=== PATIENT | female | born 1995 | race Asian ===

== ENCOUNTER 2025-03-14 08:30 | Outpatient (CLI) | payer BC, SELFPAY ==
[2025-03-14 14:56] LABS: Chlamydia DNA Amplified* NOT DETECTED (No Detected); GC DNA Amplified* NOT DETECTED (No Detected)
== END 2025-03-14 08:31 | disposition home or self-care (01) ==
PROVIDERS: Visit Provider Physician Assistant Medical
DX: Z00.01 Encounter for general adult medical examination with abnormal findings (principal); D64.9 Anemia, unspecified; Z13.6 Encounter for screening for cardiovascular disorders; Z13.1 Encounter for screening for diabetes mellitus; Z11.4 Encounter for screening for human immunodeficiency virus [HIV]; Z11.59 Encounter for screening for other viral diseases; Z11.3 Encounter for screening for infections with a predominantly sexual mode of transmission; Z12.4 Encounter for screening for malignant neoplasm of cervix
CPT/HCPCS: 80061; 82728; 82947; 84443; 84702; 84703; 86703; 86803; 87491; 87591; 88141; 88142

== ENCOUNTER 2025-04-12 09:06 | Outpatient (CLI) | payer BC, SELFPAY ==
--- NOTE | 2025-04-12 09:15 | CRLHL7_ITS ---
For Patients: As a result of the Century Cures Act, medical imaging exams and procedure reports are released immediately into your electronic medical record. You may view this report before your referring provider. If you have questions, please contact your health care provider. OB ULTRASOUND LESS THAN 14 WEEKS, 04/12/2025 CLINICAL HISTORY: Dating and viability. TECHNIQUE: Real time weber scale imaging of the fetus was performed. Transvaginal imaging performed. COMPARISON: None. FINDINGS: LMP: 02/08/2025. SHAHANA by LMP: 11/15/2025. GA: 9 weeks 0 days. CRL: 1.2 cm, 7 weeks 3 days. SHAHANA: 11/26/2025. FHR: 0 bpm. GEST SAC: 2.7 cm. YOLK SAC: 8.0 mm. RIGHT OV: 3.8 x 2.1 x 2.8. CL LEFT OV: 3.5 x 1.4 x 1.7 cm. IMPRESSION: Nonviable intrauterine . pole measures 7 weeks 3 days without heart tones. Associated abnormally enlarged yolk sac measures 8.1 mm. No subchorionic hemorrhage. Hermes Eller M.D. Diagnostic Radiologist [email or web address] Transcribed: 2:21 pm DW/Dictated by: Hermes Eller MD @ 04/12/2025 1:02:00 PM (Electronically Signed)
== END 2025-04-12 09:07 | disposition home or self-care (01) ==
LOC: US 09:07
PROVIDERS: PCP Physician Assistant Medical; Visit Provider Registered Nurse
DX: Z34.91 Encounter for supervision of normal pregnancy, unspecified, first trimester (principal); Z3A.09 9 weeks gestation of pregnancy
CPT/HCPCS: 76817; 86850; 86900; 86901

== ENCOUNTER 2025-06-11 18:49 | Outpatient (CLI) | payer BC, SELFPAY ==
[2025-06-11 21:07] LABS: Bacterial Vaginosis* POSITIVE (Negative); Candida glab/krus NOT DETECTED (No Detected)
== END 2025-06-11 18:50 | disposition home or self-care (01) ==
LOC: NFLDREF 18:49
PROVIDERS: PCP Physician Assistant Medical; Visit Provider Registered Nurse
DX: N89.8 Other specified noninflammatory disorders of vagina (principal); R10.2 Pelvic and perineal pain
CPT/HCPCS: 81513; 87086; 87481; 87661

== ENCOUNTER 2025-07-09 10:58 | Outpatient (CLI) | payer BC, SELFPAY ==
--- NOTE | 2025-07-09 11:15 | CRLHL7_ITS ---
For Patients: As a result of the Century Cures Act, medical imaging exams and procedure reports are released immediately into your electronic medical record. You may view this report before your referring provider. If you have questions, please contact your health care provider. INDICATION: Irregular menstruation COMPARISON: None. TECHNIQUE: 2D weber-scale and color Doppler images were acquired of the pelvis using a transabdominal and transvaginal approach. Transvaginal imaging performed to better visualize the endometrial stripe and ovaries. FINDINGS: Sonographic images demonstrate a normal size and smooth outer contour of the uterus. Uterus measures 6.9 cm in length by 3.6 cm in AP diameter by 4.3 cm in transverse dimension. Small incidental cystic areas present within uterine fundus. The endometrial lining appears thickened and heterogeneous and measures 12 mm in composite thickness. The right ovary measures 3.8 x 2.1 x 2.5 cm in size and the left ovary measures 3.4 x 1.6 x 2.4 cm. The ovaries demonstrate normal arterial and venous blood flow on color Doppler analysis. There are no suspicious fluid collections within the cul-de-sac. Simple cyst right ovary measures 2.1 x 1.7 x 2.0 cm. IMPRESSION: Thickened and heterogeneous endometrium measuring 12 millimeters. Dictated by Hermes Eller MD @ 07/10/2025 5:33:53 PM (Electronically Signed)
== END 2025-07-09 10:59 | disposition home or self-care (01) ==
LOC: US 10:58
PROVIDERS: PCP Physician Assistant Medical; Visit Provider Obstetrics & Gynecology
DX: N92.6 Irregular menstruation, unspecified (principal); R93.89 Abnormal findings on diagnostic imaging of other specified body structures
CPT/HCPCS: 76830; 76856

== ENCOUNTER 2025-07-15 13:38 | Outpatient (CLI) | payer BC, SELFPAY | END 2025-07-15 13:39 | disposition home or self-care (01) | LOC: NFLDREF 07-17 15:42 | PROVIDERS: PCP Physician Assistant Medical; Referring Provider Physician Assistant Medical; Visit Provider Registered Nurse | DX: O02.1 Missed abortion (principal) | CPT/HCPCS: 84702 ==